=== PATIENT | male | born 1980 | race Hispanic/Latino ===

== ENCOUNTER 2019-04-05 06:34 | Emergency (ER) | payer MEDICAID, OTHER ==
[2019-04-05] MEDS ORDERED: LIDOCAINE HCL 1% 20 ML VIAL ONE (08:19)
[2019-04-05] MEDS ORDERED: TETANUS/DIPHTHERIA TOXOID [ADULT] 0.5 ML VIAL IM ONE (09:02)
== END 2019-04-05 09:13 | disposition home or self-care (01) ==
LOC: EDH 06:34
DX: S61.411A Laceration without foreign body of right hand, initial encounter (principal); Z72.0 Tobacco use; Y04.0XXA Assault by unarmed brawl or fight, initial encounter; Y93.89 Activity, other specified; Y92.488 Other paved roadways as the place of occurrence of the external cause; Y99.8 Other external cause status
CPT/HCPCS: 12042; 90471; 90714

== ENCOUNTER 2020-03-19 09:47 | Emergency (ER) | payer OTHER ==
[2020-03-19] MEDS ORDERED: ACETAMINOPHEN-CODEINE 300/30MG TAB ONE (10:26)
[2020-03-19] MEDS ORDERED: CYCLOBENZAPRINE HCL 10 MG TABLET ONE (10:26)
== END 2020-03-19 11:12 | disposition home or self-care (01) ==
LOC: EDH 09:47
DX: M54.5 Low back pain (principal); Z72.0 Tobacco use
CPT/HCPCS: 72100

== ENCOUNTER 2020-05-05 08:00 | Emergency (ER) | payer SELFPAY ==
[2020-05-05] MEDS ORDERED: KETOROLAC TROMETHAMINE 60 MG/2 ML VIAL ONE (08:51)
[2020-05-05] MEDS ORDERED: ORPHENADRINE CITRATE 30 MG/ML ML ONE (08:51)
== END 2020-05-05 10:11 | disposition home or self-care (01) ==
LOC: EDH 08:00
DX: M54.5 Low back pain (principal); Z72.0 Tobacco use
CPT/HCPCS: 96372 ×2; 99284; J1885; J2360